=== PATIENT | female | born 1950 | race Two or more races ===

== ENCOUNTER 2018-03-27 15:44 | Outpatient (CLI) | payer OTHER | END 2018-03-27 15:50 | disposition home or self-care (01) | LOC: RAD 15:44 | DX: R05 Cough (principal) ==

== ENCOUNTER 2018-05-02 14:14 | Outpatient (CLI) | payer OTHER | END 2018-05-02 14:18 | disposition home or self-care (01) | LOC: RAD 14:14 | DX: J18.0 Bronchopneumonia, unspecified organism (principal) ==

== ENCOUNTER 2018-09-04 15:41 | Outpatient (CLI) | payer OTHER | END 2018-09-04 16:55 | disposition home or self-care (01) | LOC: TOM 15:41 | DX: R91.1 Solitary pulmonary nodule (principal); Z72.0 Tobacco use ==

== ENCOUNTER 2025-06-01 05:18 | Day surgery (SDC) | payer OTHER ==
[2025-05-26 14:24] VITALS: BP 104/70
[~2025-06-01] VITALS: Ht 152.4 cm; Wt 76.2 kg
[~2025-06-01 05:18] MED LIST: LIPITOR40 M1; LYRICA100 MG PO; RESTORIL7.5 MG
[2025-06-01] MEDS ORDERED: LIDOCAINE HCL 1%/EPINEPHRINE 20ML VIAL IJ ONE (08:30)
[2025-06-01] MEDS ORDERED: CEFAZOLIN SODIUM 1,000 MG VIAL IV ONE (08:30)
[2025-06-01] MEDS ORDERED: METHYLPREDNISOLONE ACETATE 80 MG/ML VIAL IM ONE (08:30)
[2025-06-01] MEDS ORDERED: EPINEPHRINE HCL/PF 1 MG/ML AMPUL IR ONE (08:30)
[2025-06-01] MEDS ORDERED: BUPIVACAINE HCL 30 ML VIAL IJ ONE (08:30)
[2025-06-01] MEDS ORDERED: DUI500 PO (08:43)
[2025-06-01] MEDS ORDERED: TRAM1TAB98 PO (08:44)
[2025-06-01] MEDS ORDERED: MEPERIDINE HCL/PF 25 MG/ML VIAL IM PRN (08:45)
[2025-06-01] MEDS ORDERED: PROMETHAZINE HCL 25 MG/ML AMPUL IM PRN (08:45)
[2025-06-01] MEDS ORDERED: CEFADROXIL 500 MG CAPSULE PO SCH (09:00)
== END 2025-06-01 13:40 | disposition home or self-care (01) ==
LOC: CIR.AMB 05:18
PROVIDERS: ATTEND Orthopaedic Surgery Sports Medicine
DX: M23.322 Other meniscus derangements, posterior horn of medial meniscus, left knee (principal); M65.862 Other synovitis and tenosynovitis, left lower leg; M67.52 Plica syndrome, left knee; M23.52 Chronic instability of knee, left knee; M22.42 Chondromalacia patellae, left knee